=== PATIENT | female | born 1975 | race Caucasian/White ===

== ENCOUNTER → 2018-12-18 | Outpatient (CLI) | payer SELFPAY ==
[2015-12-24 10:03] VITALS: BP 102/69
[~2018-12-18] MED LIST: CETI10TA22 PO; DEXT25CA4 PO; HYDR-3164 PO; NAPR-683 PO; SENN1TAB71 PO
[2018-12-18 16:08] LABS: BASO # 0.1 x10^3/uL (0.0-0.2); BASO % 1 % (0-3); EOS # 0.2 x10^3/uL (0.0-0.7); EOS % 3 % (0-3); HEMATOCRIT 39.5 % (36.0-47.0); HEMOGLOBIN 13.6 g/dL (12.0-15.5); LYMPH # 3.2 x10^3/uL (1.0-4.8); LYMPH % 46 % (24-48); MEAN CORPUSCULAR HEMOGLOBIN 32 pg (25-35); MEAN CORPUSCULAR HGB CONC 35 g/dL (31-37); MEAN CORPUSCULAR VOLUME 92 fL (79-100); MONO # 0.5 x10^3/uL (0.0-1.1); MONO % 7 % (0-9); NEUT % 43 % (31-73); PLATELET COUNT 242 x10^3/uL (140-400); RED BLOOD COUNT 4.31 x10^6/uL (3.50-5.40); RED CELL DISTRIBUTION WIDTH 12.8 % (11.5-14.5)
[2018-12-18 16:50] LABS: ALBUMIN 3.9 g/dL (3.4-5.0); ALBUMIN/GLOBULIN RATIO 1.2 (1.0-1.7); CALCIUM 8.9 mg/dL (8.5-10.1); CREATININE 0.8 mg/dL (0.6-1.0); GFR 77.9; POTASSIUM 3.5 mmol/L (3.5-5.1); TOTAL BILIRUBIN 0.3 mg/dL (0.2-1.0); TOTAL PROTEIN 7.2 g/dL (6.4-8.2)
== END | disposition home or self-care (01) ==
LOC: SURGPAT 15:49
PROVIDERS: ATTEND Neurological Surgery
DX: Z01.818 Encounter for other preprocedural examination (principal); M51.17 Intervertebral disc disorders with radiculopathy, lumbosacral region; E55.9 Vitamin D deficiency, unspecified
CPT/HCPCS: 36415; 80053; 82306; 85025; 87641

== ENCOUNTER 2019-01-01 07:07 | Day surgery (SDC) | payer SELFPAY ==
--- NOTE | 2018-12-29 19:29 | HP ---
ADMIT DATE: PREOPERATIVE HISTORY AND PHYSICAL Willard Avila dictating for Dr. Fernando Martinez. DATE OF SURGERY: 01/01/2019. HISTORY OF PRESENT ILLNESS: The patient is a pleasant 43-year-old who has difficulty with low back and left leg pain. She said in the past she has had episodes of back and bilateral leg discomfort, this problem began about 4 months ago and is very severe. She says the pain radiates from her lower back to her left buttock and then her left posterior thigh. The problem started spontaneously. The pain can reach a 10/10. She says the pain is constant. Changing positions does help to a degree. She has been taking ibuprofen, naproxen and CBD oil. She tried gabapentin, which she said was not helpful for her. She has had chiropractic treatment in the past as well as physical therapy. She underwent epidural steroid injections in previous years. Recently, she has a friend who is a physical therapist who has been directing her with physical therapy exercises over the last month in detail. That has not helped her at all with her pain. PAST MEDICAL HISTORY: Arthritis, headaches or migraines, MRSA infection, scarlet fever and tonsillitis. PAST SURGICAL HISTORY: Foot surgery x 2 in 1992, in 2008 and ablation in 2016. FAMILY HISTORY: Cancer, diabetes, hypertension, migraine and spine problems. SOCIAL HISTORY: Unemployed. . Does not exercise. Smoker. Drinks alcohol 1-2 times per year. Drinks coffee and soda daily. ALLERGIES: PENICILLIN AND SULFA. CURRENT MEDICATIONS: Adderall, naproxen and ibuprofen. REVIEW OF SYSTEMS: A 12-point review of systems was obtained and is noncontributory except for that mentioned above. PHYSICAL EXAMINATION: NEUROSURGERY EXAMINATION: GENERAL APPEARANCE: Alert, pleasant, in no acute distress. HEAD: Normocephalic, atraumatic. SKIN: Warm and dry. MUSCULOSKELETAL: Lumbar paraspinal muscle bulk is normal, restricted range of motion of the lumbar spine, [id number] tenderness of the lower lumbar spine with palpation, normal range of motion of the lower extremities bilaterally. EXTREMITIES: No clubbing, cyanosis or edema. NEUROLOGIC: Alert and oriented x 3, normal recent and remote memory. Strength 5/5 in bilateral lower extremities. Sensory was intact to bilateral lower extremities to light touch. Reflexes are trace and symmetric in lower extremities bilaterally. Positive straight leg raising on the left at about 15 degrees, relieved by Lasegue's maneuver. Positive cross-leg raising on the right side with left hip pain, antalgic gait. IMAGING: Reviewed. I reviewed lumbar MRI scan. On that study there is focal disc protrusion eccentric to the left side and occupying the left lateral recess at L5-S1 with compression of the left S1 nerve root. ASSESSMENT: Intervertebral disc disorder with radiculopathy, lumbosacral region. PLAN: I believe that the patient has a herniated lumbar disc, which is very symptomatic. My recommendation is that she undergo lumbar microsurgery at this time. I did discuss with her surgery and the risks and the expected postoperative course. She understands. She would like to go ahead. We will make the arrangements. FERNANDO MARTINEZ MD DR: GEOVANNA/myla JOB#: [id number] / [id number]
[~2019-01-01] VITALS: Ht 167.6 cm; Wt 91.2 kg
[~2019-01-01 07:07] MED LIST changes: +BACITRACIN 50,000 UNIT in IV NORMAL SALINE 1000ML BAG 1,000 ML IRR ONE; +BUPIVACAINE-EPI 0.5%-1:200000 MPF 30 ML VIAL. INJ ONE; +HYDROmorphone 2 MG/ML VIAL IV PRN; +IV RINGERS,LACTATED 1000ML 1,000 ML IV SCH; +LIDOCAINE 1% PF 2 ML VIAL. ID PRN; +ONDANSETRON PF 4 MG/2 ML VIAL. IV PRN; +VANCOMYCIN 1GM IVPB FOR OMNI 250 ML IV ONE; +fentaNYL PF VIAL 100 MCG/2 ML VIAL IV PRN
[2019-01-01] MEDS ORDERED: THROMBIN TOPICAL 20,000 UNIT SPRAY.SYRN KIT TP ONE (07:35)
[2019-01-01] MEDS ORDERED: GELATIN SPONGE SIZE 100. ONE (07:35)
[2019-01-01] MEDS ORDERED: KETOROLAC 60 MG/2 ML VIAL. ONE (07:35)
[2019-01-01] MEDS ORDERED: MIDAZOLAM HCL/PF 2 MG/2 ML VIAL. ONE (08:32)
[2019-01-01] MEDS ORDERED: ROCURONIUM 50 MG/5 ML VIAL. ONE (08:33)
[2019-01-01] MEDS ORDERED: fentaNYL PF VIAL 250 MCG/5 ML VIAL ONE (08:33)
[2019-01-01] MEDS ORDERED: REMIFENTANIL 2 MG VIAL. IV ONE (08:33)
[2019-01-01] MEDS ORDERED: PHENYLEPHRINE in 0.9% NACL PF 1 MG/10 ML SYRINGE. IV ONE (09:54)
[2019-01-01] MEDS ORDERED: LIDOCAINE 2% PF 5 ML VIAL. ONE (09:54)
[2019-01-01] MEDS ORDERED: PROPOFOL 20 ML IV ONE (09:54)
[2019-01-01] MEDS ORDERED: ONDANSETRON PF 4 MG/2 ML VIAL. ONE ×2 (09:54)
[2019-01-01] MEDS ORDERED: PHENYLEPHRINE 10 MG/ML VIAL. ONE ×2 (09:55)
[2019-01-01] MEDS ORDERED: DEXAMETHASONE SOD PHOS 20 MG/5 ML VIAL. ONE (09:55)
[2019-01-01] MEDS ORDERED: GLYCOPYRROLATE 1 MG/5 ML VIAL. ONE (10:55)
[2019-01-01] MEDS ORDERED: NEOSTIGMINE METHYLSULFATE 5 MG/5 ML SYRINGE. ONE (10:55)
--- NOTE | 2019-01-01 11:12 | OP ---
DATE OF SURGERY: 01/01/2019 PREOPERATIVE DIAGNOSES: Herniated lumbar disk, L5-S1 left, with left lumbar radiculopathy. POSTOPERATIVE DIAGNOSIS: Herniated lumbar disk, L5-S1 left, with left lumbar radiculopathy. OPERATION PERFORMED: Hemilaminotomy and microdiskectomy L5-S1, left. The operation was done with EMG monitoring, SSEP monitoring, fluoroscopy, microscopic dissection. CROP PICKER: ANGELA Garsia assisted with the entire procedure. OPERATIVE INDICATIONS: The patient is a very pleasant 43-year-old who has a 4-month history of severe back and left leg pain. On imaging studies, she has a herniated lumbar disk at L5-S1 left, with nerve root compression. She has had epidural steroid injections in the past. More recently, she has been in physical therapy and has not been helped by this. I recommended lumbar microsurgery. She understands the surgery, the risks, the technique she wished to go ahead. DESCRIPTION OF PROCEDURE: Following general endotracheal anesthesia, the patient was positioned prone on the Yonas table. Lumbar region prepped and draped in standard fashion. MARICRUZ hose and AV impulse boots were applied for DVT prophylaxis. Microscope was draped. Fluoroscopy was draped and brought into field. Monitoring was established. Vancomycin 1 gram was given prior to surgery. Using fluoroscopic guidance, a small midline incision was made over the L5-S1 interspace, dissected down through skin and subcutaneous tissue, reflected the paraspinal muscles, placed a Charlotte micro disk retractor, brought in the high speed air drill and burred down a small hemilaminotomy and then trimmed away ligamentum flavum and exposed the dural sac and the exiting S1 root to make a small partial foraminotomy. The root was erythematous. There were a number of moderately large veins tethering the nerve and I coagulated these and did cut the tethering months with an arachnoid knife and allowed me to gently mobilize the nerve medially, which was under moderate pressure. I incised the annulus with #11 blade somewhat laterally and then using the blunt hook, I was able to pull back a moderate focal disk fragment. When this occurred, the root was freer. I was able to retract gently more medially. I enlarged my annulotomy and entered into the disk space and performed diskectomy with pituitary rongeurs. I then worked more medially and pulled back the large medial fragment and another inferior fragment and at the termination of these maneuvers plus a discectomy, the region was very well decompressed. I explored carefully. I felt no other fragments. I irrigated copiously. There was no significant firing throughout the operation. At the end of the procedure, the nerve was free and mobile. I irrigated and did use small amounts of bone wax as well as bipolar cautery for hemostasis. I then removed the retractor, obtained hemostasis in the muscle, closed the fascia, then the subcutaneous tissue in layers. The skin was closed with 4-0 subcuticular stitch. The operation went very well and I was quite pleased with the surgery. REINIER MARTINEZ MD DR: GEOVANNA/myla JOB#: [id number] / [id number]
[2019-01-01] MEDS ORDERED: METH-38 PO (11:15)
[2019-01-01] MEDS ORDERED: DOCU-109 PO (11:15)
--- NOTE | 2019-01-01 11:17 | DISCH ---
DISCHARGE INSTRUCTIONS Condition on Discharge Condition on Discharge: Stable Activity After Discharge Activity Instructions for Disc: Activity as tolerated, Avoid exertion Other activity instructions: no driving for a week Bathing Instructions: No Tub Bath until see Lifting Instructions after Dis: No heavy lifting, No pulling or pushing, Do not lift >10 pounds Exercise Instruction after Dis: Walk 15 min, 3 x per day Driving Instructions after Dis: Do not drive today Weight Bearing Status after Di: Full weight bearing Diet after Discharge Diet after Discharge: Regular Additional Diet Restrictions: resume home diet Wound Incision Care Wound/Incision Care: Ice to area for comfort Other wound/incision instructi: may remove dressing in 48 hours if dry then may shower, no soaking Checks after Discharge Checks after discharge: Check your Temp as needed Contacting the after DC Call your doctor for: Concerns you may have Follow-Up Follow up with: Dr. Martinez's nurse in 2 weeks [phone] REINIER MARTINEZ MD Jan 01, 2019 11:17
[2019-01-01] MEDS: PROCHLORPERAZINE 10 MG/2 ML VIAL. IV PRN ×2 (11:40→11:54)
[2019-01-01] MEDS: MORPHINE SULFATE 2 MG/ML VIAL. IV PRN ×2 (11:41→11:53)
[2019-01-01] MEDS ORDERED: HYDROcodone/APAP 5/325MG 1 TAB TABLET PO ONE ×2 (12:00)
[2019-01-01 13:07] VITALS: BP 105/62
[2019-01-01] MEDS ORDERED: DESFLURANE > 120 MINUTES IH ONE (14:43)
--- NOTE | 2019-01-02 16:06 | PATHOLOGY ---
[facility] Accession Number: [id number] . 01 Material submitted: . vertebral column - LUMBAR DISC AND DECOMPRESSION . 01 Clinical history: . Lumbar herniated disc with radiculopathy . 02 Diagnosis: Segments of fibrocartilaginous, fibroadipose, and skeletal muscle tissue and bone, lumbar disc and decompression: - Degenerative changes of fibrocartilaginous tissue. . (JP:mm; 01/02/2019) [facility] 01/02/2019 1308 Local . 02 Comment: There is no evidence of an acute inflammatory process or malignancy. . (JPM:mml; 01/02/2019) . 02 Electronically signed: . Gerhard Hill MD, Pathologist NPI- [id number] . 01 Gross description: . The specimen is received in formalin, labeled "Jie Bonilla, lumbar disc and decompression" and consists of multiple fragments of pink-villegas tissue, bone, and cartilage measuring 3.5 x 3.4 x 0.9 cm in aggregate. A outbound call center representative portion is submitted in A1 following decalcification. (SDY; 01/01/2019) SYU/SYU 01/01/2019 1540 Local . 02 Pathologist provided ICD-10: M51.26, M54.16 . 02 CPT . 475472, [id number] Specimen Comment: A courtesy copy of this report has been sent to Specimen Comment: [phone]. Specimen Comment: Report sent to Performed at: 01 [facility] [address], [place] [id number] MD Dante Duong MD Phone: [phone] Performed at: 02 [facility] [address] [place], [place] [id number] MD Gerhard Hill MD Phone: [phone]
== END 2019-01-01 13:52 | disposition home or self-care (01) ==
LOC: SURG 07:07
PROVIDERS: ATTEND Neurological Surgery
DX: M51.16 Intervertebral disc disorders with radiculopathy, lumbar region (principal); G43.909 Migraine, unspecified, not intractable, without status migrainosus; F17.210 Nicotine dependence, cigarettes, uncomplicated; Z87.39 Personal history of other diseases of the musculoskeletal system and connective tissue; Z86.14 Personal history of Methicillin resistant Staphylococcus aureus infection; Z98.890 Other specified postprocedural states; Z88.1 Allergy status to other antibiotic agents; Z88.0 Allergy status to penicillin; Z72.89 Other problems related to lifestyle
CPT/HCPCS: 63030; 76000; 81025; 97116; 97161; 97530; A7015; J0780; J1100; J1885; J2001; J2250; J2270; J2370; J2405; J2704; J2710; J3010; J3370; J3490; J7030; J7120; 88304; 88311